=== PATIENT | male | born 1965 | race Caucasian/White ===

== ENCOUNTER 2020-09-17 18:01 | Emergency (ER) | payer MEDICAID ==
[~2020-09-17] VITALS: Ht 182.9 cm; Wt 75.0 kg
--- NOTE | 2020-09-17 18:18 | NUR ---
PT BIB EMS FOR SUICIDE ATTEMPT. PT TRIED TO DRINK AND DROWN SELF IN [place]. PT IS DEPRESSED, RECENT OF DAUGHTER, AND SISTER. PT DRANK 1 PINT TODAY. PT GIVEN WARM BLANKETS, COLD TO TOUCH. ALL BELONGINGS IN LOCKER, VITALS SIGNS MONITORED, SECURE ROOM, SITTER PRESENT. DENIES DRUG USE
[2020-09-17 18:27] LABS: BASOPHILS % (AUTO) 1 % (0-1); EOSINOPHILS % (AUTO) 1 % (1-7); LYMPHOCYTES % (AUTO) 33 % (22-44); MD NO; MEAN CORPUSCULAR HGB CONC 33.3 g/dL (33.2-36.2); MEAN PLATELET VOLUME 7.8 fL (7.4-10.4); MONOCYTES % (AUTO) 12 % (2-9); NEUTROPHILS % (AUTO) 52 % (42-75); PLATELET COUNT 333 x10^3/uL (130-400); RED BLOOD COUNT 5.61 x10^6/uL (4.38-5.82); RED CELL DISTRIBUTION WIDTH 13.7 % (9.4-14.8)
[2020-09-17 18:37] LABS: ALANINE AMINOTRANSFERASE 35 U/L (12-78); ALBUMIN 4.3 g/dL (3.4-5.0); ANION GAP 7 mmol/L (5-15); CHLORIDE 106 mmol/L (98-107); CREATININE 1.15 mg/dL (0.7-1.3)
--- NOTE | 2020-09-17 18:42 | NUR ---
GIVEN MEAL TRAY. SITTER PRESENT
--- NOTE | 2020-09-17 18:47 | NUR ---
REPORT TO DWIGHT
[2020-09-17 18:48] LABS: ALKALINE PHOSPHATASE 107 U/L (45-117); BILIRUBIN,TOTAL 0.4 mg/dL (0.2-1.0); TOTAL PROTEIN 8.4 g/dL (6.4-8.2)
[2020-09-17 18:51] VITALS: BP 107/73
--- NOTE | 2020-09-17 18:52 | NUR ---
PT RESTING ON [facility] IN [place] FOR SAFETY AND FREQ CHECKS.
--- NOTE | 2020-09-17 19:00 | NUR ---
bedside report from sancho valdivia, pt resting on gurney, nad, appears comfortable, sitter in line of sight, pt has even and unlabored respirations, etoh odor noted, wctm. waiting for pt to sober and reeval
[2020-09-17 20:02] LABS: AMPHETAMINE SCREEN, URINE Positive (Negative); BARBITURATE SCREEN, URINE Negative (Negative); BENZODIAZEPINE SCREEN, URINE Negative (Negative); CANNABINOID SCREEN, URINE Positive (Negative); COCAINE SCREEN, URINE Negative (Negative); METHADONE SCREEN, URINE Negative (Negative); OPIATE SCREEN, URINE Negative (Negative)
--- NOTE | 2020-09-17 20:06 | NUR ---
PT URINE DRUG SCREEN OBTAINED AND WALKED TO LAB, PT RESTING ON GURNEY, NAD, APPEARS COMFORTABLE, EYES CLOSED, SITTER IN LINE OF SIGHT, TM.
--- NOTE | 2020-09-17 20:54 | NUR ---
PT RESTING ON GURNEY, NAD, EYES CLOSED, EVEN AND UNLABORED RESPIRATIONS, APPEARS COMFORTABLE, SITTER IN LINE OF SIGHT, SI PRECAUTIONS IN PLACE, WCTM.
--- NOTE | 2020-09-17 21:00 | NUR ---
RN BREATHALYZED PT, PT BLEW .000 PA AWARE AND GOING TO REEVAL AT THIS TIME.
--- NOTE | 2020-09-17 22:00 | NUR ---
LATE ENTRY D/T PT CARE: PT RESTING ON GURNEY, NAD, EYES CLOSED, EVEN AND UNLABORED RESPIRATIONS, APPEARS COMFORTABLE, SITTER IN LINE OF SIGHT, SI PRECAUTIONS IN PLACE, WCTM.
--- NOTE | 2020-09-17 22:59 | NUR ---
MORRO RN: TELE PSYCH PAGED
--- NOTE | 2020-09-17 23:15 | NUR ---
PT RESTING IN GURNEY, EVEN AND UNLABORED RESPIRATIONS, NAD, WAITING FOR TELEPYSCH CONSULT, SITTER IN LINE OF SIGHT, SI PRECAUTIONS IN PLACED, WCTM.
--- NOTE | 2020-09-18 00:48 | NUR ---
PT RESTING ON GURNEY, NAD, EYES CLOSED, NO CHANGE IN CONDITION, WCTM. SITTER IN LINE OF SIGHT, SI PRECAUTIONS IN PLACE
--- NOTE | 2020-09-18 01:19 | NUR ---
TASK RN: PT CLEARED FOR DC BY JYOTI TUCKER. BELONGINGS RETURNED TO PATIENT. PT CALM AND COOPERATIVE DISCUSSING DC INSTRUCTIONS AND RESOURCES. PT AMBULATED STEADILY TO DC WITH RN. DRESSED APPROPRIATELY FOR WEATHER.
== END 2020-09-18 01:22 | disposition home or self-care (01) ==
LOC: ED 18:42
DX: F32.9 Major depressive disorder, single episode, unspecified (principal); F10.120 Alcohol abuse with intoxication, uncomplicated; F17.210 Nicotine dependence, cigarettes, uncomplicated; F15.10 Other stimulant abuse, uncomplicated; F12.10 Cannabis abuse, uncomplicated; R45.851 Suicidal ideations; Z72.9 Problem related to lifestyle, unspecified; Y90.0 Blood alcohol level of less than 20 mg/100 ml
CPT/HCPCS: 36415; 80053; 80307; 84443; 85025; 99283; 99406

== ENCOUNTER 2021-02-09 00:58 | Emergency (ER) | payer MEDICAID ==
[~2021-02-09] VITALS: Ht 177.8 cm; Wt 85.0 kg
[2021-02-09 01:39] LABS: BASOPHILS % (AUTO) 1 % (0-1); EOSINOPHILS % (AUTO) 0 % (1-7); LYMPHOCYTES % (AUTO) 18 % (22-44); MEAN CORPUSCULAR HEMOGLOBIN 31.4 pg (27.5-34.5); MEAN CORPUSCULAR HGB CONC 34.6 g/dL (33.2-36.2); MONOCYTES % (AUTO) 7 % (2-9); NEUTROPHILS % (AUTO) 74 % (42-75); PLATELET COUNT 323 x10^3/uL (130-400); RED CELL DISTRIBUTION WIDTH 13.4 % (9.4-14.8)
[2021-02-09 01:52] LABS: ALANINE AMINOTRANSFERASE 131 U/L (12-78); ALBUMIN 4.1 g/dL (3.4-5.0); ANION GAP 11 mmol/L (5-15); CALCIUM 8.8 mg/dL (8.5-10.1); CHLORIDE 106 mmol/L (98-107); CREATININE 0.83 mg/dL (0.7-1.3)
[2021-02-09 01:55] LABS: ALKALINE PHOSPHATASE 79 U/L (45-117); BILIRUBIN,TOTAL 1.3 mg/dL (0.2-1.0); TOTAL PROTEIN 7.6 g/dL (6.4-8.2)
[2021-02-09 02:09] LABS: MD NO
[2021-02-09 02:27] VITALS: BP 106/71
--- NOTE | 2021-02-09 02:30 | NUR ---
PT IN BED WITH NO SIGNS OR SYMPTOMS OF ACUTE DISTRESS NOTED RESPIRATIONS EVEN AND UNLABORED PT RESTING QUIETLY WITH EYES CLOSED AND EDYTA HUGGER IN PLACE, AROUSABLE TO VOICE, STATES THAT HE FEELS BETTER WITH WARMER ON, DENIES PAIN OR DISCOMFORT AT THIS TIME. CALL LIGHT WITHIN REACH. LIGHTS LOW IN ROOM FOR COMFORT
== END 2021-02-09 02:53 | disposition home or self-care (01) ==
LOC: ED 01:43
DX: R74.01 Elevation of levels of liver transaminase levels (principal); R06.00 Dyspnea, unspecified; R06.02 Shortness of breath; R05 Cough; Z72.9 Problem related to lifestyle, unspecified; X31.XXXA Exposure to excessive natural cold, initial encounter; Y93.89 Activity, other specified; Y92.89 Other specified places as the place of occurrence of the external cause; Y99.8 Other external cause status
CPT/HCPCS: 36415; 71045; 80053; 85025; 93005; 99285